=== PATIENT | female | born 2000 | race Caucasian/White ===

== ENCOUNTER 2022-03-18 04:56 | Inpatient (IN) | payer OTHER ==
[~2022-03-18] VITALS: Ht 167.6 cm; Wt 83.9 kg
[2022-03-18 05:34] LABS: BILIRUBIN NEGATIVE (NEGATIVE); BLOOD NEGATIVE Ery/uL (NEGATIVE); CLARITY CLEAR (CLEAR); COLOR YELLOW (YELLOW); GLUCOSE (U) NORMAL (NORMAL); LEUKOCYTES TRACE Leu/uL (NEGATIVE); NITRITE NEGATIVE (NEGATIVE); PROTEIN NEGATIVE (NEGATIVE); UROBILINOGEN 0.2 mg/dL (0.2-1.0)
[2022-03-18 05:42] LABS: AMPHETAMINES NEGATIVE (NEGATIVE); BARBITURATES NEGATIVE (NEGATIVE); ECSTASY (MDMA) NEGATIVE (NEGATIVE); MARIJUANA (THC) NEGATIVE (NEGATIVE); METHADONE NEGATIVE (NEGATIVE); OPIATES NEGATIVE (NEGATIVE); OXYCODONE NEGATIVE (NEGATIVE)
[2022-03-18 05:46] LABS: BACTERIA 1+; MUCOUS MODERATE; SQUAMOUS EPITHELIAL CELLS 20-50
[2022-03-18 06:14] LABS: HCT 35.1 % (37.0-47.0); HGB 12.2 g/dl (12.5-16.0); MCH 30.4 pg (25.0-31.0); MCHC 34.8 g/dL (32.0-36.0); MCV 87.5 fL (78.0-100.0); MPV 10.6 fL (6.0-9.5); RBC 4.01 M/uL (4.20-5.40); RDW 13.2 % (11.5-14.0); WBC 14.9 K/uL (4.0-10.5)
[2022-03-18 06:29] LABS: ALBUMIN 2.7 g/dL (3.4-5.0); BILIRUBIN - TOTAL 0.6 mg/dL (0.2-1.0); CREATININE 0.6 mg/dL (0.51-0.95); GLOBULIN (CALCULATION) 4.5 g/dL; POTASSIUM 3.7 mmol/L (3.5-5.1); TOTAL PROTEIN 7.2 g/dL (6.4-8.2)
[2022-03-19 07:08] LABS: BASOPHIL 0.2 % (0-2); EOSINOPHIL 0 % (0-5); HCT 32.2 % (37.0-47.0); HGB 10.9 g/dl (12.5-16.0); LYMPHOCYTE 7.6 % (15-48); MCH 30.6 pg (25.0-31.0); MCHC 33.9 g/dL (32.0-36.0); MCV 90.4 fL (78.0-100.0); MONOCYTE 3.7 % (0-12); MPV 10.4 fL (6.0-9.5); NEUTROPHIL 87.4 % (41-80); NRBC 0; PLT 234 K/uL (150-400); RBC 3.56 M/uL (4.20-5.40); RDW 13.4 % (11.5-14.0); WBC 18.2 K/uL (4.0-10.5)
[2022-03-20 07:38] LABS: HCT 31.5 % (37.0-47.0); HGB 10.4 g/dl (12.5-16.0); MCH 30.1 pg (25.0-31.0); MPV 10.2 fL (6.0-9.5); RBC 3.46 M/uL (4.20-5.40); RDW 13.4 % (11.5-14.0); WBC 13.9 K/uL (4.0-10.5)
== END 2022-03-21 18:40 | disposition home or self-care (01) | DRG 806 ==
LOC: FOB 04:56 → FOD 04:56 → FOB 11:27
PROVIDERS: Specialist; ADMIT Obstetrics & Gynecology
PROC: 10E0XZZ Delivery of Products of Conception, External Approach (ICD-10-PCS; principal; 2022-03-19)
PROC: 0UQKXZZ Repair Hymen, External Approach (ICD-10-PCS; 2022-03-19)
PROC: 0UQMXZZ Repair Vulva, External Approach (ICD-10-PCS; 2022-03-19)
DX: O60.14X0 Preterm labor third trimester with preterm delivery third trimester, not applicable or unspecified (principal); N39.0 Urinary tract infection, site not specified; Z37.0 Single live birth; O23.43 Unspecified infection of urinary tract in pregnancy, third trimester; Z3A.35 35 weeks gestation of pregnancy; O70.0 First degree perineal laceration during delivery
CPT/HCPCS: 36415; 80053; 80305; 81001; 85025; 86850; 86900; 86901; 87070; 87088; J0690; J0696; J0702; J2540; J3105; J3410; J3475; J7120